=== PATIENT | female | born 1965 | race Caucasian/White ===

== ENCOUNTER → 2016-12-11 | Outpatient (CLI) | payer OTHER | LOC: BMCIMAGING 14:17 | PROVIDERS: ATTEND Obstetrics & Gynecology | DX: Z12.31 Encounter for screening mammogram for malignant neoplasm of breast (principal) | CPT/HCPCS: G0202 ==

== ENCOUNTER → 2018-05-29 | Outpatient (CLI) | payer OTHER | LOC: BMCIMAGING 09:06 | PROVIDERS: ATTEND Internal Medicine | DX: M79.675 Pain in left toe(s) (principal) ==